=== PATIENT | female | born 1995 | race Caucasian/White ===

== ENCOUNTER 2020-07-02 12:17 | Emergency (ER) | payer BC | END 2020-07-02 13:18 | disposition home or self-care (01) | LOC: JVIRT 12:17 | DX: Z20.822 Contact with and (suspected) exposure to COVID-19 (principal) | CPT/HCPCS: C9803; G2251-GT; U0003 ==

== ENCOUNTER 2020-07-10 15:01 | Emergency (ER) | payer BC | END 2020-07-10 15:43 | disposition home or self-care (01) | LOC: JVIRT 15:01 | DX: R05 Cough (principal); Z20.822 Contact with and (suspected) exposure to COVID-19 | CPT/HCPCS: C9803; G2251-GT; U0003 ==